=== PATIENT | female | born 1945 | race Caucasian/White ===

== ENCOUNTER 2017-05-06 20:07 | Inpatient (IN) | payer MEDICARE, BC ==
[~2017-05-06] VITALS: Ht 170.2 cm; Wt 101.6 kg
[~2017-05-06 20:07] MED LIST: ATOR20TA PO; LEVO112T5 PO; METO25TA6 PO; NIFE10CA PO; OXYC5CAP18 PO; RAMI5CAP30 PO; SUMA100T PO
[2017-05-06] MEDS ORDERED: MAGNESIUM HYDROXIDE 30 ML UDC PO PRN (23:00)
--- NOTE | 2017-05-06 23:00 | NUR ---
GPS NECKTIES PAINTER NOTES: ADMITTED A 72YO FEMALE FROM [facility] ON 5150 HOLD FOR GRAVE DISABILITY. PER HOLD THE PATIENT HAS HISTORY OF DEPRESSION, ANXIETY. PATIENT HAS BEEN IMPULSIVE, FORGETFUL, LABILE, CALLED 911 COUPLE OF TIMES WITHOUT ANY REASON. PER PATIENT "I HAVE TROUBLE GETTING MY WORDS TOGETHER, I HAVE SEVERE ANXIETY, I KNOW I CALLED 911 MANY TIMES BUT I DON'T KNOW WHY I CALLED" PATIENT WILL BE UNDER THE CARE OF DR. GONZALEZ AND DR. BUSTILLO. PATIENT USHERED TO HER ROOM. CHANGED TO PATIENT'S GOWN. UPON FACE TO FACE ASSESSMENT, PATIENT PRESENTS ALERT AND ORIENTEDX3, NOT IN RESPIRATORY DISTRESS THIS TIME, NO COMPLAINS OF PAIN OR DISCOMFORT. PATIENT APPEARS UNKEMPT, DISHEVELED, CONFUSED, FORGETFUL AND NEEDY DURING THIS ASSESSMENT. ORIENTATION TO UNIT, STAFF, CARE PLAN AND DOCTORS DONE. PATIENT WAS ABLE TO SIGN ADMISSION PAPERS BY HERSELF. SHE REFUSED TO HAVE FULL SKIN AND BODY ASSESSMENT, HOWEVER, SHE CLAIMS TO HAVE NO ANY SKIN PROBLEMS AT THIS TIME. BELONGINGS AND CONTRABAND WERE CHECKED. SOME BELONGINGS KEPT IN THE SAFE. Q15 MIN CHECKS INITIATED. CARE PLAN SPECIFIC FOR PATIENT INITIATED. ENVIRONMENTAL SAFETY CHECK DONE. DR. GONZALEZ AND DR. MALDONADO (ADVANCED PRACTICE RN FOR [facility]) INFORMED OF THE SAID ADMISSION. WILL MONITOR PATIENT FOR MOOD, SAFETY AND BEHAVIOR.
[2017-05-06] MEDS ORDERED: ALBU2.5V13 NEB (23:16)
[2017-05-06] MEDS ORDERED: ALEN70TA3 PO (23:17)
[2017-05-06] MEDS ORDERED: ARIP2TAB3 PO (23:18)
[2017-05-06] MEDS ORDERED: BENZ-13 PO (23:19)
[2017-05-06 23:20] VITALS: BP 151/92
[2017-05-06] MEDS ORDERED: CLON0.1T PO (23:21)
[2017-05-06] MEDS ORDERED: CYAN10009 PO (23:23)
[2017-05-06] MEDS ORDERED: FENO145T PO (23:23)
[2017-05-06] MEDS ORDERED: FLUT1BLS IH (23:24)
[2017-05-06] MEDS ORDERED: GABA-534 PO (23:25)
[2017-05-06] MEDS ORDERED: GUAI10SY3 PO (23:27)
[2017-05-06] MEDS ORDERED: HEPA500013 SQ (23:28)
[2017-05-06] MEDS ORDERED: LEVO137T24 PO (23:30)
--- NOTE | 2017-05-06 23:30 | NUR ---
GPS RN NOTE, PATIENT NEEDS MED RECON. PAGED AND LEFT MESSAGE FOR DR [facility] . DR MALDONADO DISTRIBUTION SALES MANAGER. WAITING FOR A RETURN PHONE CALL. WILL CONTINUE TO MONITOR THIS PATIENT.
[2017-05-06] MEDS ORDERED: LORA10TA68 PO (23:31)
[2017-05-06] MEDS ORDERED: METH500T PO (23:33)
[2017-05-06] MEDS ORDERED: ACETAMINOPHEN 325 MG TABLET ONE (23:34)
[2017-05-06] MEDS ORDERED: METO50TA16 PO (23:35)
[2017-05-06] MEDS ORDERED: MIRT30TA PO (23:36)
[2017-05-06] MEDS ORDERED: MONT10TA22 PO (23:37)
[2017-05-06] MEDS: ACETAMINOPHEN 325 MG TABLET PO PRN (23:38)
[2017-05-06] MEDS ORDERED: OMEG1CAP PO (23:38)
[2017-05-06] MEDS ORDERED: VERA180T25 PO (23:39)
--- NOTE | 2017-05-06 23:42 | NUR ---
GPS RN NOTES: PATIENT COMPLAINED OF MILD GENERALIZED BODY PAIN, REQUESTED FOR TYLENOL MEDICATION. TYLENOL 650 MG PULLED OUT FROM OMNICELL BY DEVELOPER ANALYST-SULAIMAN AND GIVEN TO PATIENT A PRN MED. WILL MONITOR PATIENT'S PAIN STATUS.
[2017-05-06] MEDS ORDERED: ATOR40TA PO (23:44)
--- NOTE | 2017-05-07 00:42 | NUR ---
GPS RN NOTE, PATIENT NEEDS MED RECON. PAGED DR [facility] . INFORMED DR MALDONADO OF MY FINDINGS. DR MALDONADO ORDERED TO ALBUTEROL 2.5MG / 3ML VIA NEB Q4HR PRN AND SAID HE WILL RECONCILE THE REST OF THIS PATIENTS MEDICATION IN THE MORNING. ALL ORDERS NOTED AND CARRIED OUT. WILL CONTINUE TO MONITOR THIS PATIENT.
[2017-05-07] MEDS ORDERED: ACETAMINOPHEN 325 MG TABLET ONE (05:27)
[2017-05-07] MEDS: ACETAMINOPHEN 325 MG TABLET PO PRN (05:31)
--- NOTE | 2017-05-07 09:19 | NUR ---
GPS RN/NOTE PATIENT NEEDS MED RECON. PAGED DR [facility] . WAITING FOR CALL BACK WILL CONTINUE TO MONITOR THIS PATIENT.
[2017-05-07 09:44] VITALS: BP 161/84
[2017-05-07] MEDS: LORAZEPAM 0.5 MG TABLET PO PRN ×2 (13:01→20:44)
--- NOTE | 2017-05-07 13:08 | NUR ---
GPS RN NOTE: PAGED DR GONZALEZ PT EXTREMELY ANXIOUS PER ORDER GIVE PRN ATIVAN 0.5 MG. MEDICATIONS GIVEN WILL CONTINUE MONITORING.
--- NOTE | 2017-05-07 14:38 | NUR ---
GPS RN NOTE: [facility] WAS PAGED FOR DR BOLAÑOS TO RECONCILED HOME MEDS WAITING FOR CALL BACK X 2
[2017-05-07] MEDS ORDERED: GUAIFENESIN/CODEINE 10 ML UDC PO PRN (15:30)
[2017-05-07] MEDS ORDERED: ALBUTEROL FS 2.5 MG/0.5 ML VIAL.NEB NEB PRN (15:30)
[2017-05-07 16:00] VITALS: BP 152/87
[2017-05-07] MEDS: risperiDONE 1 MG TABLET PO SCH (17:39)
--- NOTE | 2017-05-07 19:30 | NUR ---
GPS RN NOTE, RECEIVED PATIENT AWAKE AND IN BED, NO S/S OR COMPLAINTS OF PAIN AT THIS TIME. PATIENT DISPLAYING NO S/S OF APPARENT DISTRESS AT THIS TIME. PATIENT BREATHING IS UNLABORED WITH EQUAL RISE AND FALL OF THE CHEST. PATIENT IS ALERT AND ORIENTED X 2-3 ON ROOM AIR WITH A SPO2 95 %. PATIENT IS MED COMPLIANT, CONFUSED AT TIMES, CALM, COOPERATIVE, AND NEEDS REORIENTATION AT TIMES. PATIENT HAS A ONE TO ONE SITTER FOR FALL RISK. PATIENT DENIES SI AND HI AT THIS TIME. PATIENT ASSISTED WITH TURNING AND REPOSITIONING Q2HR AND PRN FOR COMFORT AND CIRCULATION. PATIENT HAS NO NEEDS AT THIS TIME. PATIENT EDUCATED ON THE USE OF THE CALL DOVER. PATIENT BED SIDE RAILS UP X 2 FOR SAFETY, BED IS LOCKED AND LOW, WILL CONTINUE TO MONITOR THIS PATIENT WITH THE HELP OF STAFF.
[2017-05-07 19:48] VITALS: BP 151/86
--- NOTE | 2017-05-07 20:44 | NUR ---
GPS RN NOTE, PATIENT HAS A COMPLAINT OF FEELING ANXIOUS AND IS REQUESTING ATIVAN AT THIS TIME. PATIENT VITAL SIGNS ARE STABLE. GAVE ATIVAN 0.5MG PO Q6HR PRN ORDERED. WILL REASSESS FOR ANXIETY AND I WILL CONTINUE TO MONITOR THIS PATIENT.
[2017-05-07] MEDS: MIRTAZAPINE 15 MG TABLET PO SCH (21:27)
[2017-05-07] MEDS: ATORVASTATIN 40 MG TABLET PO SCH (21:27)
[2017-05-07] MEDS: METOPROLOL TARTRATE 50 MG TABLET PO SCH (21:28)
[2017-05-07] MEDS: HEPARIN SODIUM, PORCINE 5000 UNITS/1 ML VIAL SQ SCH (21:29)
[2017-05-08] MEDS: ZOLPIDEM TARTRATE 5 MG TABLET PO PRN (00:01)
--- NOTE | 2017-05-08 00:01 | NUR ---
GPS RN NOTE, PATIENT HAS A COMPLAINT OF NOT BEING ABLE TO SLEEP AND IS REQUESTING AMBIEN AT THIS TIME. PATIENT VITAL SIGNS ARE STABLE. GAVE AMBIEN 5MG PO HS ORDERED. WILL REASSESS FOR INSOMNIA AND I WILL CONTINUE TO MONITOR THIS PATIENT.
[2017-05-08 08:00] VITALS: BP 167/90
[2017-05-08 08:50] LABS: BASOPHILS % (AUTO) 0.2 % (0.0-2.0); EOSINOPHILS # (AUTO) 0.2 /CMM (0.0-0.7); EOSINOPHILS % (AUTO) 1.7 % (0.0-6.0); HEMATOCRIT 35 % (33-45); LYMPHOCYTES # (AUTO) 1.5 /CMM (0.8-4.8); LYMPHOCYTES % (AUTO) 15.1 % (20.0-44.0); MEAN CORPUSCULAR HEMOGLOBIN 29 PG (26.0-33.0); MEAN CORPUSCULAR HGB CONC 34 g/dl (31.0-36.0); MEAN CORPUSCULAR VOLUME 86 fL (82-100); MONOCYTES # (AUTO) 0.7 /CMM (0.1-1.30); MONOCYTES % (AUTO) 6.4 % (2.0-12.0); NEUTROPHILS # (AUTO) 7.8 /CMM (1.8-8.9); NEUTROPHILS % (AUTO) 76.6 % (43.0-81.0); PLATELET COUNT (AUTO) 339 /CMM (150-450); RDW COEFFICIENT OF VARIATION 15.8 (11.5-15.0); RED BLOOD CELL COUNT(AUTO) 4.11 MIL/uL (4.0-5.2); WHITE BLOOD COUNT (AUTO) 10.2 K/uL (4.3-11.0)
[2017-05-08 08:59] LABS: ALANINE AMINOTRANSFERASE 37 U/L (12-78); ALBUMIN 3.7 g/dL (3.4-5.0); ALKALINE PHOSPHATASE 45 U/L (46-116); BILIRUBIN,TOTAL 0.4 mg/dL (0.2-1.0); CALCIUM, SERUM 8.9 mg/dL (8.5-10.1); CARBON DIOXIDE 20 mmol/L (21-32); CHLORIDE 106 mmol/L (98-107); CREATININE 1.3 mg/dL (0.6-1.3); GLUCOSE 114 mg/dL (74-106); POTASSIUM 3.7 mmol/L (3.5-5.1); SODIUM SERUM 139 mmol/L (136-145); TOTAL PROTEIN, SERUM 7.1 g/dL (6.4-8.2); UREA NITROGEN, BLOOD 27 mg/dL (7-18)
[2017-05-08] MEDS: FLUTICASONE/VILANTEROL 1 EACH BLST.W.DEV IH SCH (09:00)
[2017-05-08] MEDS: METHOCARBAMOL (500MG) 500 MG TABLET PO PRN (09:00)
[2017-05-08] MEDS ORDERED: Medication Not On Formulary EA (Omega-3 Fatty Acids/Fish Oil (Fish Oil 1,000 Mg Capsule) PO SCH (09:00)
[2017-05-08] MEDS: CYANOCOBALAMIN 500 MCG TABLET PO SCH (09:02)
[2017-05-08] MEDS: LEVOTHYROXINE SODIUM 137 MCG TABLET PO SCH (09:02)
[2017-05-08] MEDS: GABAPENTIN 300 MG CAPSULE PO SCH (09:02)
[2017-05-08] MEDS: FENOFIBRATE NANOCRYS (145 MG) 145 MG TABLET PO SCH (09:03)
[2017-05-08] MEDS: MONTELUKAST SODIUM (10MG) 10 MG TABLET PO SCH (09:03)
[2017-05-08] MEDS: METOPROLOL TARTRATE 50 MG TABLET PO SCH ×2 (09:05→21:23)
[2017-05-08] MEDS: VERAPAMIL SR 180 MG TABLET.SA PO SCH (09:06)
[2017-05-08] MEDS: HEPARIN SODIUM, PORCINE 5000 UNITS/1 ML VIAL SQ SCH ×2 (09:11→21:25)
[2017-05-08 09:22] LABS: CHOLESTEROL 277 mg/dL (<200); HDL CHOLESTEROL 34 mg/dL (40-60); LDL 102 mg/dL (0-99)
[2017-05-08 09:36] LABS: TRIGLYCERIDES 1160 mg/dL (30-150)
[2017-05-08 10:30] LABS: ASPARTATE AMINOTRANSFERASE 27 U/L (15-37)
[2017-05-08] MEDS: Z GUARD REMEDY 2 OZ OINT TP SCH (12:34)
[2017-05-08 16:27] VITALS: BP 165/91
[2017-05-08] MEDS: risperiDONE 1 MG TABLET PO SCH (17:08)
[2017-05-08] MEDS: CLONIDINE HCL 0.1 MG TABLET PO PRN (17:38)
[2017-05-08 18:39] VITALS: BP 138/80
[2017-05-08 20:23] VITALS: BP 117/66
[2017-05-08] MEDS: ATORVASTATIN 40 MG TABLET PO SCH (21:23)
[2017-05-08] MEDS: MIRTAZAPINE 15 MG TABLET PO SCH (21:23)
[2017-05-09] MEDS: ZOLPIDEM TARTRATE 5 MG TABLET PO PRN ×2 (01:50→21:59)
[2017-05-09 08:00] VITALS: BP 167/76
[2017-05-09] MEDS: FENOFIBRATE NANOCRYS (145 MG) 145 MG TABLET PO SCH (09:00)
[2017-05-09] MEDS: MONTELUKAST SODIUM (10MG) 10 MG TABLET PO SCH (09:00)
[2017-05-09] MEDS: LEVOTHYROXINE SODIUM 137 MCG TABLET PO SCH (09:00)
[2017-05-09] MEDS: GABAPENTIN 300 MG CAPSULE PO SCH (09:00)
[2017-05-09] MEDS: LORATADINE 10 MG TABLET PO SCH (09:01)
[2017-05-09] MEDS: METOPROLOL TARTRATE 50 MG TABLET PO SCH ×2 (09:01→21:23)
[2017-05-09] MEDS: CYANOCOBALAMIN 500 MCG TABLET PO SCH (09:01)
[2017-05-09] MEDS: FLUTICASONE/VILANTEROL 1 EACH BLST.W.DEV IH SCH (09:02)
[2017-05-09] MEDS: HEPARIN SODIUM, PORCINE 5000 UNITS/1 ML VIAL SQ SCH ×2 (09:10→21:23)
[2017-05-09] MEDS: Z GUARD REMEDY 2 OZ OINT TP SCH ×3 (09:14→21:25)
[2017-05-09] MEDS: VERAPAMIL SR 180 MG TABLET.SA PO SCH (09:59)
[2017-05-09 10:57] LABS: CALCIUM, SERUM 8.4 mg/dL (8.5-10.1); CARBON DIOXIDE 18 mmol/L (21-32); CHLORIDE 108 mmol/L (98-107); CREATININE 1.2 mg/dL (0.6-1.3); GLUCOSE 100 mg/dL (74-106); MAGNESIUM 1.9 mg/dL (1.8-2.4); PHOSPHORUS 2.4 mg/dL (2.5-4.9); POTASSIUM 3.7 mmol/L (3.5-5.1); SODIUM SERUM 140 mmol/L (136-145); UREA NITROGEN, BLOOD 23 mg/dL (7-18)
--- NOTE | 2017-05-09 12:38 | NUR ---
Initial Discharge Note Patient [facility] at [facility], [address] [place] [address]. MAGO called and spoke with Theresa in administration at the assisted living facility, who stated that patient can return but that a nurse from assisted living has to come and assess patient first, as protocol. MAGO stated that she will consult with MD and will schedule assessment when appropriate. Addendum: 05/11/17 at 1033 by ROSA MERCEDES Please note that phone number for facility is [phone]
[2017-05-09 16:00] VITALS: BP 119/75
[2017-05-09] MEDS: risperiDONE 1 MG TABLET PO SCH (17:10)
[2017-05-09] MEDS ORDERED: K PHOS NEUTRAL 250 MG TABLET PO ONE (18:00)
[2017-05-09 20:16] VITALS: BP 142/72
--- NOTE | 2017-05-09 20:58 | NUR ---
GPS RN NOTES RECEIVED TELL PHONE ORDERS FROM DR. XI Palmer/Natasha ATIVAN 0.5 MG PRN , NEW ORDERS RECEVIED AND CARRIED OUT.
[2017-05-09] MEDS: ATORVASTATIN 40 MG TABLET PO SCH (21:23)
[2017-05-09] MEDS: MIRTAZAPINE 15 MG TABLET PO SCH (21:23)
[2017-05-10] MEDS ORDERED: ALENDRONATE 70 MG TABLET PO SCH (07:30)
[2017-05-10 08:00] VITALS: BP 139/72
[2017-05-10] MEDS: VERAPAMIL SR 180 MG TABLET.SA PO SCH (08:13)
[2017-05-10] MEDS: LEVOTHYROXINE SODIUM 137 MCG TABLET PO SCH (08:13)
[2017-05-10] MEDS: METOPROLOL TARTRATE 50 MG TABLET PO SCH ×2 (08:14→21:36)
[2017-05-10] MEDS: FLUTICASONE/VILANTEROL 1 EACH BLST.W.DEV IH SCH (08:14)
[2017-05-10] MEDS: CYANOCOBALAMIN 500 MCG TABLET PO SCH (08:14)
[2017-05-10] MEDS: GABAPENTIN 300 MG CAPSULE PO SCH (08:14)
[2017-05-10] MEDS: FENOFIBRATE NANOCRYS (145 MG) 145 MG TABLET PO SCH (08:14)
[2017-05-10] MEDS: Z GUARD REMEDY 2 OZ OINT TP SCH ×3 (08:16→21:41)
[2017-05-10] MEDS: HEPARIN SODIUM, PORCINE 5000 UNITS/1 ML VIAL SQ SCH ×2 (08:16→21:40)
[2017-05-10 09:37] LABS: CALCIUM, SERUM 8.8 mg/dL (8.5-10.1); CARBON DIOXIDE 16 mmol/L (21-32); CHLORIDE 106 mmol/L (98-107); CREATININE 1.1 mg/dL (0.6-1.3); GLUCOSE 102 mg/dL (74-106); PHOSPHORUS 2.5 mg/dL (2.5-4.9); POTASSIUM 3.7 mmol/L (3.5-5.1); SODIUM SERUM 137 mmol/L (136-145); UREA NITROGEN, BLOOD 22 mg/dL (7-18)
[2017-05-10] MEDS: MONTELUKAST SODIUM (10MG) 10 MG TABLET PO SCH (10:40)
[2017-05-10] MEDS: ACETAMINOPHEN 325 MG TABLET PO PRN ×2 (11:22→18:26)
--- NOTE | 2017-05-10 11:22 | NUR ---
RN Note: Patient stated she has 5/10 pain. acetaminophen 650mg given.
[2017-05-10 16:03] VITALS: BP 129/79
[2017-05-10] MEDS: risperiDONE 1 MG TABLET PO SCH (17:08)
--- NOTE | 2017-05-10 18:30 | NUR ---
GPS/RN-NOTES PATIENT C/O HEADACHE AND REQUESTING FOR TYLENOL. TYLENOL 650MG P.O GIVEN PRN ORDER. WILL CONT. MONITORING FOR SAFETY.
[2017-05-10 20:00] VITALS: BP 126/64
[2017-05-10] MEDS: MIRTAZAPINE 15 MG TABLET PO SCH (21:35)
[2017-05-10] MEDS: ATORVASTATIN 40 MG TABLET PO SCH (21:35)
--- NOTE | 2017-05-11 05:33 | NUR ---
GPS/RN-NOTES PATIENT SLEEPING WITH BREATHING EVEN AND NONLABORED,EASILY AROUSES. WILL CONT. MONITORING Q15 MINS. FOR SAFETY AND BEHAVIOR. ENDORSE TO THE CHARGE NURSE FOR MONITORING AND CONTINUITY OF CARE
[2017-05-11 08:00] VITALS: BP 161/79
[2017-05-11] MEDS: GABAPENTIN 300 MG CAPSULE PO SCH (08:57)
[2017-05-11] MEDS: LEVOTHYROXINE SODIUM 137 MCG TABLET PO SCH (08:57)
[2017-05-11] MEDS: CYANOCOBALAMIN 500 MCG TABLET PO SCH (08:57)
[2017-05-11] MEDS: METOPROLOL TARTRATE 50 MG TABLET PO SCH ×2 (08:57→21:57)
[2017-05-11] MEDS: FENOFIBRATE NANOCRYS (145 MG) 145 MG TABLET PO SCH (08:57)
[2017-05-11] MEDS: Z GUARD REMEDY 2 OZ OINT TP SCH ×3 (08:58→22:00)
[2017-05-11] MEDS: MONTELUKAST SODIUM (10MG) 10 MG TABLET PO SCH (08:58)
[2017-05-11] MEDS: VERAPAMIL SR 180 MG TABLET.SA PO SCH (08:59)
[2017-05-11] MEDS: FLUTICASONE/VILANTEROL 1 EACH BLST.W.DEV IH SCH (09:00)
[2017-05-11] MEDS: LORATADINE 10 MG TABLET PO SCH (09:01)
[2017-05-11] MEDS: HEPARIN SODIUM, PORCINE 5000 UNITS/1 ML VIAL SQ SCH ×2 (09:10→21:59)
--- NOTE | 2017-05-11 10:10 | NUR ---
WOUND CARE CONSULT: PT PRESENTS WITH RASH TO INNER BUTTOCKS, PERINEUM AND INNER THIGHS, PRESENT ON ADMISSION. RECOMMENDATIONS MADE FOR SKIN PROTECTION AND CARE. DISCUSSED WITH NURSING STAFF. PT IS AMBULATORY AND STATES IS CONTINENT. WILL SEE PRN. BRUNO IN AGREEMENT WITH PLAN OF CARE. CURRENT RONEN SCORE IS 18. Addendum: 05/11/17 at 1011 by YOCASTA NAVARRO WNDNU Amended: Links added.
[2017-05-11] MEDS ORDERED: MINERAL OIL/PETROLATUM,WHITE 120 GM JAR TP PRN (10:30)
--- NOTE | 2017-05-11 10:35 | NUR ---
Discharge Planning: MAGO left a message with Donnell the rn resource nurse for [facility], [address] [place] [address], for Theresa in administration. MAGO requested an assessment to be conducted and provided her direct contact information. MAGO asked the Theresa call back as soon as she is able to do so.
[2017-05-11] MEDS: CLOTRIMAZOLE/BETAMETASONE DIPROPIONATE 15 GM TUBE TP SCH ×2 (13:17→17:03)
[2017-05-11 16:00] VITALS: BP 131/73
[2017-05-11] MEDS: risperiDONE 1 MG TABLET PO SCH (17:03)
[2017-05-11 21:37] VITALS: BP 146/70
[2017-05-11] MEDS: ZOLPIDEM TARTRATE 5 MG TABLET PO PRN (21:57)
[2017-05-11] MEDS: MIRTAZAPINE 15 MG TABLET PO SCH (21:57)
[2017-05-11] MEDS: ATORVASTATIN 40 MG TABLET PO SCH (21:57)
[2017-05-12 08:00] VITALS: BP 149/94
[2017-05-12] MEDS: FENOFIBRATE NANOCRYS (145 MG) 145 MG TABLET PO SCH (08:51)
[2017-05-12] MEDS: GABAPENTIN 300 MG CAPSULE PO SCH (08:51)
[2017-05-12] MEDS: MONTELUKAST SODIUM (10MG) 10 MG TABLET PO SCH (08:52)
[2017-05-12] MEDS: METOPROLOL TARTRATE 50 MG TABLET PO SCH ×2 (08:52→20:52)
[2017-05-12] MEDS: CYANOCOBALAMIN 500 MCG TABLET PO SCH (08:52)
[2017-05-12] MEDS: FLUTICASONE/VILANTEROL 1 EACH BLST.W.DEV IH SCH (08:53)
[2017-05-12] MEDS: HEPARIN SODIUM, PORCINE 5000 UNITS/1 ML VIAL SQ SCH ×2 (08:53→21:02)
[2017-05-12] MEDS: LEVOTHYROXINE SODIUM 137 MCG TABLET PO SCH (08:53)
[2017-05-12] MEDS: CLOTRIMAZOLE/BETAMETASONE DIPROPIONATE 15 GM TUBE TP SCH ×2 (08:54→17:03)
[2017-05-12] MEDS: Z GUARD REMEDY 2 OZ OINT TP SCH ×3 (08:54→21:00)
[2017-05-12] MEDS: VERAPAMIL SR 180 MG TABLET.SA PO SCH (08:55)
[2017-05-12] MEDS: MAG HYDROX/AL HYDROX/SIMETH 30 ML UDC PO PRN ×2 (14:44→21:59)
[2017-05-12 16:00] VITALS: BP 130/80
[2017-05-12] MEDS: risperiDONE 1 MG TABLET PO SCH (17:03)
[2017-05-12 20:00] VITALS: BP 149/87
[2017-05-12] MEDS: ATORVASTATIN 40 MG TABLET PO SCH (21:15)
[2017-05-12] MEDS: MIRTAZAPINE 15 MG TABLET PO SCH (21:15)
[2017-05-12] MEDS: ZOLPIDEM TARTRATE 5 MG TABLET PO PRN (21:58)
[2017-05-13] MEDS: LEVOTHYROXINE SODIUM 137 MCG TABLET PO SCH ×2 (07:28→09:34)
[2017-05-13 08:00] VITALS: BP 160/89
[2017-05-13] MEDS: GABAPENTIN 300 MG CAPSULE PO SCH (09:34)
[2017-05-13] MEDS: MONTELUKAST SODIUM (10MG) 10 MG TABLET PO SCH (09:34)
[2017-05-13] MEDS: LORATADINE 10 MG TABLET PO SCH (09:34)
[2017-05-13] MEDS: CYANOCOBALAMIN 500 MCG TABLET PO SCH (09:34)
[2017-05-13] MEDS: FENOFIBRATE NANOCRYS (145 MG) 145 MG TABLET PO SCH (09:34)
[2017-05-13] MEDS: METOPROLOL TARTRATE 50 MG TABLET PO SCH ×2 (09:35→21:03)
[2017-05-13] MEDS: Z GUARD REMEDY 2 OZ OINT TP SCH ×3 (09:36→21:10)
[2017-05-13] MEDS: CLOTRIMAZOLE/BETAMETASONE DIPROPIONATE 15 GM TUBE TP SCH ×2 (09:36→17:45)
[2017-05-13] MEDS: FLUTICASONE/VILANTEROL 1 EACH BLST.W.DEV IH SCH (09:36)
[2017-05-13] MEDS: VERAPAMIL SR 180 MG TABLET.SA PO SCH (09:38)
[2017-05-13] MEDS: HEPARIN SODIUM, PORCINE 5000 UNITS/1 ML VIAL SQ SCH ×2 (09:39→21:09)
[2017-05-13] MEDS: CLONIDINE HCL 0.1 MG TABLET PO PRN (14:35)
[2017-05-13 16:00] VITALS: BP 173/98
[2017-05-13] MEDS: risperiDONE 1 MG TABLET PO SCH (17:47)
[2017-05-13 20:00] VITALS: BP 151/74
[2017-05-13] MEDS: ATORVASTATIN 40 MG TABLET PO SCH (21:03)
[2017-05-13] MEDS: MIRTAZAPINE 15 MG TABLET PO SCH (21:04)
[2017-05-13] MEDS: MAG HYDROX/AL HYDROX/SIMETH 30 ML UDC PO PRN (21:04)
[2017-05-14] MEDS ORDERED: LEVOTHYROXINE SODIUM 137 MCG TABLET PO SCH (07:30)
[2017-05-14 08:00] VITALS: BP 130/80
[2017-05-14] MEDS ORDERED: LEVOTHYROXINE SODIUM 75 MCG TABLET PO SCH (08:42)
[2017-05-14] MEDS: MONTELUKAST SODIUM (10MG) 10 MG TABLET PO SCH (08:48)
[2017-05-14] MEDS: FENOFIBRATE NANOCRYS (145 MG) 145 MG TABLET PO SCH (08:48)
[2017-05-14] MEDS: GABAPENTIN 300 MG CAPSULE PO SCH (08:48)
[2017-05-14] MEDS: CYANOCOBALAMIN 500 MCG TABLET PO SCH (08:48)
[2017-05-14] MEDS: LEVOTHYROXINE SODIUM 75 MCG TABLET PO SCH (08:48)
[2017-05-14] MEDS: Z GUARD REMEDY 2 OZ OINT TP SCH ×3 (08:51→21:34)
[2017-05-14] MEDS: VERAPAMIL SR 180 MG TABLET.SA PO SCH (08:51)
[2017-05-14] MEDS: FLUTICASONE/VILANTEROL 1 EACH BLST.W.DEV IH SCH (08:51)
[2017-05-14] MEDS: CLOTRIMAZOLE/BETAMETASONE DIPROPIONATE 15 GM TUBE TP SCH ×2 (08:51→17:00)
[2017-05-14] MEDS: HEPARIN SODIUM, PORCINE 5000 UNITS/1 ML VIAL SQ SCH (08:53)
[2017-05-14] MEDS: METOPROLOL TARTRATE 50 MG TABLET PO SCH ×2 (09:11→21:32)
--- NOTE | 2017-05-14 09:45 | NUR ---
Discharge Planning: MAGO spoke with Suyapa from [facility], [address] [place] [address], , who stated that they will assess patient today at 1:30 and that a courtesy van driver will be ready to provide transportation today, upon discharge. MAGO informed nurses and patient. Patient's psychiatrist, Dr. Felix left a message for SW that patient can discharge on Sunday.
[2017-05-14] MEDS: ALBUTEROL FS 2.5 MG/3 ML VIAL.NEB NEB PRN (13:07)
[2017-05-14] MEDS: risperiDONE 1 MG TABLET PO SCH (18:19)
--- NOTE | 2017-05-14 18:29 | NUR ---
CHANGE OF SHIFT REPORT PT RESTING COMFORTABLY IN BED. NO S/S OR C/O PAIN OR DISTRESS NOTED. SIDE RAILS UP X2, CALL LIGHT LEFT WITHIN REACH. PT KEPT CLEAN, DRY, AND COMFORTABLE. NO SIGNIFICANT CHANGES SINCE PREVIOUS SHIFT. WILL GIVE REPORT TO YESENIA WILKINSON.
--- NOTE | 2017-05-14 19:30 | NUR ---
RN OPENING NOTES RECEIVED REPORT FROM DAYSHIFT RNJOYCE. FOUND Pt AWAKE, RESTING IN BED, WATCHING TV. NO S/S OF ACUTE DISTRESS OR SOB NOTED. Pt IS A/OX3, VERBAL, ABLE TO MAKE NEEDS KNOWN. NO C/O PAIN AT THIS TIME. NO IV ACCESS ON Pt. Pt IS A GPS OVERFLOW, ON A 5150 HOLD. SAFETY MEASURES IN PLACE. BED LOW, LOCKED, HOB ELEVATED, SIDE RAILS UP, CALL LIGHT AND BEDSIDE TABLE WITHIN REACH. WILL CONTINUE TO MONITOR Pt THROUGHOUT THE NIGHT FOR SAFETY.
[2017-05-14 20:00] VITALS: BP 135/79
[2017-05-14] MEDS: ATORVASTATIN 40 MG TABLET PO SCH (21:31)
[2017-05-14] MEDS: MIRTAZAPINE 15 MG TABLET PO SCH (21:31)
[2017-05-14] MEDS: ZOLPIDEM TARTRATE 5 MG TABLET PO PRN (21:35)
[2017-05-15] MEDS: ACETAMINOPHEN 325 MG TABLET PO PRN ×2 (06:29→10:18)
--- NOTE | 2017-05-15 06:32 | NUR ---
RN CLOSING NOTES NO SIGNIFICANT CHANGES IN Pt's CONDITION. Pt REMAINS STABLE AT THIS TIME. NO S/S OF ACUTE DISTRESS OR SOB NOTED DURING THE NIGHT. ALL NEEDS MET AND ATTENDED TO. Pt C/O STOMACH ACHE & PAINS, Pt SAID THAT SHE DID NOT HAVE A BM FOR ABOUT 2 DAYS. ADMINISTERED MOM AND TYLENOL. SAFETY MEASURES IN PLACE. WILL ENDORSE TO DAYSCHITO RN FOR Pt's CARLOS. Addendum: 05/15/17 at 0655 by ANNA FLORES RN ALSO GAVE HOT PACKS TO Pt TO PUT ON STOMACH
[2017-05-15 08:00] VITALS: BP 126/65
--- NOTE | 2017-05-15 08:00 | NUR ---
RN OPENING NOTES RECEIVED PT. IN BED A&OX2-3. PT. DENIES, SUICIDAL IDEATION, AND SELF HARM. BREATHING UNLABORED, AND EVENLY ON ROOM AIR. NO S/S OF ACUTE DISTRESS. PT. IS FROM. BED IS IN LOWEST, AND LOCKED POSITION, 2 SIDE RAILS UP, AND INSTRUCTED PT. TO USE CALL LIGHT FOR ASSISTANCE. WILL CONTINUE TO ASSESS AND MONITOR.
[2017-05-15] MEDS: Z GUARD REMEDY 2 OZ OINT TP SCH ×2 (09:00→21:00)
[2017-05-15] MEDS: FENOFIBRATE NANOCRYS (145 MG) 145 MG TABLET PO SCH (10:18)
[2017-05-15] MEDS: MONTELUKAST SODIUM (10MG) 10 MG TABLET PO SCH (10:18)
[2017-05-15] MEDS: GABAPENTIN 300 MG CAPSULE PO SCH (10:18)
[2017-05-15] MEDS: LORATADINE 10 MG TABLET PO SCH (10:19)
[2017-05-15] MEDS: CYANOCOBALAMIN 500 MCG TABLET PO SCH (10:19)
[2017-05-15] MEDS: LEVOTHYROXINE SODIUM 75 MCG TABLET PO SCH (10:19)
[2017-05-15] MEDS: METOPROLOL TARTRATE 50 MG TABLET PO SCH ×2 (10:20→21:07)
--- NOTE | 2017-05-15 11:07 | NUR ---
SW spoke with patient's RN and confirmed that a chest x-ray was conducted. RN stated that the results have not returned yet and that they are waiting for medical clearance. MAGO provided patient with SW's extension and asked for RN to contact her once updates were available.
[2017-05-15] MEDS: FLUTICASONE/VILANTEROL 1 EACH BLST.W.DEV IH SCH (12:25)
[2017-05-15] MEDS: CLOTRIMAZOLE/BETAMETASONE DIPROPIONATE 15 GM TUBE TP SCH ×2 (12:25→17:48)
[2017-05-15] MEDS: VERAPAMIL SR 180 MG TABLET.SA PO SCH (12:29)
[2017-05-15] MEDS ORDERED: AZITHROMYCIN 250 MG TABLET PO ONE (14:00)
--- NOTE | 2017-05-15 15:42 | NUR ---
Patient's chest x-ray came back clear and patient was medically cleared. Patient's psychiatrist gave the order to discharge.
--- NOTE | 2017-05-15 15:43 | NUR ---
Discharge Note: Patient will be discharged to [facility], [address] [place] [address], Patient will be picked up by Etta Valderrama, her patient advocate [phone] in her private vehicle. Etta Colin [phone], patients conservator [PLEASE NOTE THAT THERE IS NO PAPERWORK IN PATIENTS CHART ABOUT CONSERVATORSHIP]. Both Etta Valderrama and Etta Colin where in agreement with discharge plan. Upon discharge, patient appears calm and cooperative. Patient denies suicidal and homicidal ideation. Patient will be seen by her psychiatrist, Dr. Felix [address] [facility] [address] [place] [phone] on June 18 2017 at 2pm. Patient will also follow up with her ager tender, Dr. Serrato [address] [facility] [address], [place] [address] [phone] on May 21 at 2pm. Addendum: 05/16/17 at 0956 by ROSA MERCEDES PLEASE NOTE THAT PATIENT DID NOT DISCHARGE YESTERDAY. DISCHARGE WAS RESCHEDULED FOR TODAY, 05/16. MAGO TO CONFIRM WITH DOCTOR.
[2017-05-15 16:00] VITALS: BP 155/77
--- NOTE | 2017-05-15 16:50 | NUR ---
RN-CO: DR LAYNE GAVE AN ORDER TO DISCHARGE PATIENT TODAY. PATIENT DENIED SUICIDAL AND HOMICIDAL IDEATION. DENIED COMMAND HALLUCINATION.
[2017-05-15] MEDS: risperiDONE 1 MG TABLET PO SCH (17:48)
--- NOTE | 2017-05-15 18:00 | NUR ---
RN NOTES PT. WAS SEEN AND EXAMINED BY DR. LAYNE. PER , PT.'S DISCHARGE WAS PUT ON HOLD DUE TO PSYCHIATRIC REASON.
--- NOTE | 2017-05-15 19:30 | NUR ---
RN CLOSING NOTES PT. IN BED A&OX2-3. PT. DENIES, SUICIDAL IDEATION, AND SELF HARM. BREATHING UNLABORED, AND EVENLY ON ROOM AIR. NO S/S OF ACUTE DISTRESS. BED IS IN LOWEST, AND LOCKED POSITION, 2 SIDE RAILS UP, AND INSTRUCTED PT. TO USE CALL LIGHT FOR ASSISTANCE. WILL ENDORSE REPORT TO NURSE.
--- NOTE | 2017-05-15 19:30 | NUR ---
RN OPENING NOTES RECEIVED REPORT FROM DAYSHIFT RNYODIT. FOUND Pt AWAKE, RESTING IN BED, WATCHING TV. NO S/S OF ACUTE DISTRESS OR SOB NOTED. Pt IS A/OX3, VERBAL, ABLE TO MAKE NEEDS KNOWN. Pt IS GPS OVERFLOW. NO IV ACCESS. Pt IS C/O OF STOMACH PAINS AND COUGH. HAVING SOME ANXIETY. SAFETY MEASURES IN PLACE. BED LOW, LOCKED, HOB ELEVATED, SIDE RAILS UP, CALL LIGHT AND BEDSIDE TABLE WITHIN REACH. WILL CONTINUE TO MONITOR Pt THROUGHOUT THE NIGHT FOR SAFETY.
[2017-05-15 20:00] VITALS: BP 146/73
[2017-05-15] MEDS: BENZONATATE 100 MG CAPSULE PO PRN (20:59)
[2017-05-15] MEDS: MAG HYDROX/AL HYDROX/SIMETH 30 ML UDC PO PRN (21:00)
[2017-05-15] MEDS: ATORVASTATIN 40 MG TABLET PO SCH (21:00)
[2017-05-15] MEDS: MIRTAZAPINE 15 MG TABLET PO SCH (21:12)
[2017-05-15] MEDS: ZOLPIDEM TARTRATE 5 MG TABLET PO PRN (21:57)
--- NOTE | 2017-05-16 06:30 | NUR ---
RN CLOSING NOTES Pt HAS BEEN SOMEWHAT MORE CONFUSED TODAY. KEEPS REPEATING HER SENTENCES, AND LOSES HER TRAIN OF THOUGHT, AND IS BEING VERY FORGETFUL. Pt WAITING TO BE DISCHARGED TODAY. WILL BE SEEN BY DR. LAYNE BEFORE DC. NO OTHER SIGNIFICANT CHANGES IN Pt's CONDITION. Pt REMAINS STABLE AT THIS TIME. NO S/S OF ACUTE DISTRESS OR SOB NOTED DURING THE NIGHT. ALL NEEDS MET AND ATTENDED TO. SAFETY MEASURES IN PLACE. WILL ENDORSE TO DAYSHIFT RN FOR Pt's CARLOS.
[2017-05-16 08:00] VITALS: BP 158/77
--- NOTE | 2017-05-16 08:00 | NUR ---
RN NOTES PATIENT ALERT AND ORIENTED, NO DISTRESS NOTED. PATIENT APPEARS ANXIOUS. NO SOB NOTED. COMPLAINING OF COUGH. NEEDS ATTENDED AND MET, CALL LIGHT WITHIN REACH, SAFETY MEASURES IN PLACED, CALL LIGHT WITHIN REACH. WILL CONTINUE TO MONITOR.
[2017-05-16] MEDS: MONTELUKAST SODIUM (10MG) 10 MG TABLET PO SCH (08:38)
[2017-05-16] MEDS: CLOTRIMAZOLE/BETAMETASONE DIPROPIONATE 15 GM TUBE TP SCH (08:38)
[2017-05-16] MEDS: CYANOCOBALAMIN 500 MCG TABLET PO SCH (08:38)
[2017-05-16] MEDS: Z GUARD REMEDY 2 OZ OINT TP SCH (08:38)
[2017-05-16] MEDS: GABAPENTIN 300 MG CAPSULE PO SCH (08:38)
[2017-05-16] MEDS: LEVOTHYROXINE SODIUM 75 MCG TABLET PO SCH (08:38)
[2017-05-16] MEDS: FENOFIBRATE NANOCRYS (145 MG) 145 MG TABLET PO SCH (08:38)
[2017-05-16] MEDS: VERAPAMIL SR 180 MG TABLET.SA PO SCH (08:39)
[2017-05-16] MEDS: FLUTICASONE/VILANTEROL 1 EACH BLST.W.DEV IH SCH (08:39)
[2017-05-16] MEDS: METOPROLOL TARTRATE 50 MG TABLET PO SCH (08:39)
[2017-05-16] MEDS: BENZONATATE 100 MG CAPSULE PO PRN ×2 (08:45→15:25)
--- NOTE | 2017-05-16 10:49 | NUR ---
Updated Discharge Note: MAGO spoke with patient's psychiatrist, Dr. Felix and confirmed discharged for today. Patient will be discharged to assisted living facility [facility], [address] [place] [address], Patient will be picked up by Etta Valderrama, her patient advocate [phone] in her private vehicle at 2pm. Etta Colin [phone], patients conservator [PLEASE NOTE THAT THERE IS NO PAPERWORK IN PATIENTS CHART ABOUT CONSERVATORSHIP]. Both Etta Valderrama and Etta Colin where in agreement with discharge plan. Upon discharge, patient appears calm and cooperative. Patient denies suicidal and homicidal ideation. Patient will be seen by her psychiatrist, Dr. Felix [address] [facility] [address] [place] [phone] on June 18 2017 at 2pm. Patient will also follow up with her mainspring fabrication supervisor, Dr. Serrato [address] [facility] [address], [place] [address] [phone] on May 21 at 2pm MAGO informed nurse to obtain a home health order from doctor. MAGO to fax home health referral to [facility], / fax#[phone], as requested by Etta Valderrama, patient's care nurse rn/advocate. Addendum: 05/16/17 at 1437 by ROSA MERCEDES PLEASE NOTE: Etta Valderrama, is the patient's gearcase assembler from [employer] Addendum: 05/18/17 at 1043 by ROSA MERCEDES Please note that patient was discharged to medical floor instead of home. Etta Valderrama is aware.
[2017-05-16 11:38] VITALS: BP 115/69
[2017-05-16] MEDS: ALBUTEROL FS 2.5 MG/3 ML VIAL.NEB NEB PRN ×2 (11:57→14:09)
[2017-05-16] MEDS ORDERED: AZITHROMYCIN 250 MG TABLET PO SCH (14:00)
[2017-05-16] MEDS: METHOCARBAMOL (500MG) 500 MG TABLET PO PRN (14:27)
--- NOTE | 2017-05-16 14:38 | NUR ---
MAGO faxed the home health order to [facility], / fax#[phone]
[2017-05-16] MEDS: ACETAMINOPHEN 325 MG TABLET PO PRN (15:09)
[2017-05-16 15:25] VITALS: BP 163/71
[2017-05-16] MEDS: CLONIDINE HCL 0.1 MG TABLET PO PRN (15:25)
--- NOTE | 2017-05-16 15:45 | NUR ---
RN NOTES PATIENT VS BP 159/90 HR 110 TEMP 100.2 SPO2 91-92% IN ROOM AIR. PATIENT'S COMPLAINING OF NOT FEELING WELL. JANN INDEPENDENT TRADER AT FACILITY AT BEDSIDE TO MORNING SHOW [place] PRODUCER THE PATIENT, DR. WASHINGTON MADE AWARE OF CHANGES. PER MD, PATIENT CAN BE DISCHARGED IF SHE FEELS FINE. PATIENT VERBALIZED SHE WANTS TO STAY BECAUSE SHE DOESN'T FEEL WELL. RECEIVED ORDER FOR DISCHARGE FROM GPS, AND TO ADMIT PATIENT TO MEDICAL SURGICAL FLOOR.
--- NOTE | 2017-05-16 17:01 | NUR ---
RN NOTES PATIENT WILL BE CONVERTED TO MED SURG. DISCHARGE INSTRUCTIONS PROVIDED, VERBALIZED UNDERSTANDING. PATIENT SIGNED DISCHARGE PAPERWORKS. SKIN ASSESSMENT COMPLETED, PATIENT HAS REDNESS ON BUTTOCKS, REFUSED SKIN PHOTOS AT THIS TIME.
== END 2017-05-16 17:00 | disposition short-term general hospital (02) | DRG 885 ==
LOC: GPS 22:26 → GPSOV2 05-14 15:06
PROVIDERS: ADMIT Psychiatry & Neurology Psychiatry; ATTEND Internal Medicine
DX: F33.9 Major depressive disorder, recurrent, unspecified (principal); N18.9 Chronic kidney disease, unspecified; N17.9 Acute kidney failure, unspecified; E03.9 Hypothyroidism, unspecified; I12.9 Hypertensive chronic kidney disease with stage 1 through stage 4 chronic kidney disease, or unspecified chronic kidney disease; E78.5 Hyperlipidemia, unspecified; F41.9 Anxiety disorder, unspecified; K21.9 Gastro-esophageal reflux disease without esophagitis; M79.7 Fibromyalgia; Z87.891 Personal history of nicotine dependence; M81.0 Age-related osteoporosis without current pathological fracture; Z73.6 Limitation of activities due to disability; J40 Bronchitis, not specified as acute or chronic; Z79.899 Other long term (current) drug therapy
CPT/HCPCS: 36415; 71046; 80048-TC; 80053-TC; 80061-TC; 83735-TC; 84100-TC; 84443-TC; 85025-TC; 87081-TC; J1644; Z7610

== ENCOUNTER 2017-05-16 17:38 | Inpatient (IN) | payer MEDICARE, BC ==
[~2017-05-16] VITALS: Ht 170.2 cm; Wt 101.6 kg
[~2017-05-16 17:38] MED LIST changes: +ALBU2.5V13 NEB; +ALEN70TA3 PO; -ATOR20TA PO; +ATOR40TA PO; +BENZ-13 PO; +CLON0.1T PO; +CYAN10009 PO; +FENO145T PO; +FLUT1BLS IH; +GABA-534 PO; +GUAI10SY3 PO; +HEPA500013 SQ; -LEVO112T5 PO; +LEVO137T24 PO; +LORA10TA68 PO; +METH500T PO; -METO25TA6 PO; +METO50TA16 PO; +MONT10TA22 PO; -NIFE10CA PO; +OMEG1CAP PO; -OXYC5CAP18 PO; -RAMI5CAP30 PO; -SUMA100T PO; +VERA180T25 PO
--- NOTE | 2017-05-16 17:38 | NUR ---
LEGAL TRANSCRIPTIONIST NOTES PATIENT ADMITTED FROM GPS, PATIENT ALERT AND ORIENTED X3, WITH EPISODE OF ANXIOUSNESS AND FORGETFULNESS, PATIENT PLACED ON O2 AT 3LPM VIA NC WITH SPO2 OF 96%, BREATHING EVEN AND UNLABORED, COUGHING AT TIMES, NON-PRODUCTIVE, SKIN ASSESSMENT COMPLETED, PATIENT HAS REDNESS ON HER BILATERAL BUTTOCKS, BUT PATIENT REFUSED PHOTOS, PER PATIENT "IM EMBARRASSED," EXPLAINED RISKS/BENEFITS. BELONGINGS RECONCILED, RECEIVED ORDERS FROM DR. MIHAI WASHINGTON. PIV INSERTED ON LFA #22, SALINE LOCK. ALL NEEDS ATTENDED, WILL CONTINUE TO MONITOR.
[2017-05-16 18:58] VITALS: BP 119/60
[2017-05-16] MEDS ORDERED: CLONIDINE HCL 0.1 MG TABLET PO PRN (19:00)
--- NOTE | 2017-05-16 19:00 | NUR ---
RN NOTES PATIENT IS IN NO DISTRESS, BREATHING EVEN AND UNLABORED, STILL ON O2 AT 3LPM VIA NC, DENIES PAIN AT THIS TIME, VS STABLE, AFEBRILE. NEEDS ATTENDED AND MET, CALL LIGHT WITHIN REACH, ENDORSED TO LOMBARDI DEVELOPER FOR CARLOS.
[2017-05-16 19:26] LABS: BASOPHILS # (AUTO) 0.1 /CMM (0.0-0.2); BASOPHILS % (AUTO) 0.3 % (0.0-2.0); EOSINOPHILS % (AUTO) 0.1 % (0.0-6.0); HEMATOCRIT 31 % (33-45); HEMOGLOBIN 10.4 g/dL (11.5-14.8); LYMPHOCYTES # (AUTO) 0.9 /CMM (0.8-4.8); LYMPHOCYTES % (AUTO) 5.7 % (20.0-44.0); MEAN CORPUSCULAR HEMOGLOBIN 29 PG (26.0-33.0); MEAN CORPUSCULAR HGB CONC 34 g/dl (31.0-36.0); MEAN CORPUSCULAR VOLUME 86 fL (82-100); MONOCYTES # (AUTO) 1.3 /CMM (0.1-1.30); NEUTROPHILS # (AUTO) 14.1 /CMM (1.8-8.9); NEUTROPHILS % (AUTO) 85.9 % (43.0-81.0); PLATELET COUNT (AUTO) 276 /CMM (150-450); RDW COEFFICIENT OF VARIATION 16.3 (11.5-15.0); RED BLOOD CELL COUNT(AUTO) 3.58 MIL/uL (4.0-5.2); WHITE BLOOD COUNT (AUTO) 16.4 K/uL (4.3-11.0)
[2017-05-16 19:41] LABS: CALCIUM, SERUM 9.5 mg/dL (8.5-10.1); CARBON DIOXIDE 24 mmol/L (21-32); CHLORIDE 102 mmol/L (98-107); CREATININE 1.4 mg/dL (0.6-1.3); GLUCOSE 131 mg/dL (74-106); MAGNESIUM 2.2 mg/dL (1.8-2.4); PHOSPHORUS 2.8 mg/dL (2.5-4.9); POTASSIUM 4.5 mmol/L (3.5-5.1); SODIUM SERUM 137 mmol/L (136-145); UREA NITROGEN, BLOOD 20 mg/dL (7-18)
[2017-05-16 20:00] VITALS: BP 119/65
[2017-05-16] MEDS: ACETAMINOPHEN 325 MG TABLET PO PRN (22:02)
[2017-05-16] MEDS: METOPROLOL TARTRATE 50 MG TABLET PO SCH (22:02)
[2017-05-16] MEDS: METHOCARBAMOL (500MG) 500 MG TABLET PO PRN (22:03)
[2017-05-17] MEDS: ACETAMINOPHEN 325 MG TABLET PO PRN ×2 (05:04→16:59)
[2017-05-17] MEDS: METHOCARBAMOL (500MG) 500 MG TABLET PO PRN (05:32)
--- NOTE | 2017-05-17 06:40 | NUR ---
MS RN NOTES AWAKE & RESPONSIVE. NOT IN ANY DISTRESS. NO SOB NOTED. DENIES ANY PAIN OR DISCOMFORT AT THIS TIME. WITH IV-HL PATENT & INTACT. AM CARE DONE. MONITORED ACCORDINGLY. CALL LIGHT WITHIN REACH. BED IN LOWEST POSITION. SR UP X 2 FOR SAFETY. WILL ENDORSE TO NEXT SHIFT.
[2017-05-17 06:50] LABS: CALCIUM, SERUM 9.3 mg/dL (8.5-10.1); CARBON DIOXIDE 23 mmol/L (21-32); CHLORIDE 103 mmol/L (98-107); CREATININE 1.1 mg/dL (0.6-1.3); GLUCOSE 114 mg/dL (74-106); MAGNESIUM 2.3 mg/dL (1.8-2.4); PHOSPHORUS 2.4 mg/dL (2.5-4.9); POTASSIUM 4.1 mmol/L (3.5-5.1); SODIUM SERUM 135 mmol/L (136-145); UREA NITROGEN, BLOOD 17 mg/dL (7-18)
[2017-05-17 06:57] LABS: BASOPHILS % (AUTO) 0.1 % (0.0-2.0); EOSINOPHILS % (AUTO) 0.1 % (0.0-6.0); HEMATOCRIT 28 % (33-45); HEMOGLOBIN 9.4 g/dL (11.5-14.8); LYMPHOCYTES # (AUTO) 0.7 /CMM (0.8-4.8); MEAN CORPUSCULAR HEMOGLOBIN 29 PG (26.0-33.0); MEAN CORPUSCULAR HGB CONC 34 g/dl (31.0-36.0); MEAN CORPUSCULAR VOLUME 86 fL (82-100); MONOCYTES # (AUTO) 1.1 /CMM (0.1-1.30); MONOCYTES % (AUTO) 7.6 % (2.0-12.0); NEUTROPHILS # (AUTO) 12.3 /CMM (1.8-8.9); NEUTROPHILS % (AUTO) 87.2 % (43.0-81.0); PLATELET COUNT (AUTO) 250 /CMM (150-450); RDW COEFFICIENT OF VARIATION 16.6 (11.5-15.0); RED BLOOD CELL COUNT(AUTO) 3.21 MIL/uL (4.0-5.2); WHITE BLOOD COUNT (AUTO) 14.1 K/uL (4.3-11.0)
--- NOTE | 2017-05-17 07:32 | NUR ---
MS/RN OPENING NOTE PATIENT IN BED IN STABLE CONDITION. A/O X 3. NO SIGNS OF ACUTE DISTRESS. NO COMPLAIN OF PAIN OR DISCOMFORT. ALL NEEDS ATTENDED TO. CALL LIGHT WITHIN REACH. WILL CONTINUE TO MONITOR TO ENSURE SAFETY.
[2017-05-17 08:00] VITALS: BP 121/65
[2017-05-17] MEDS: CLOTRIMAZOLE/BETAMETASONE DIPROPIONATE 15 GM TUBE TP SCH ×2 (08:37→16:17)
[2017-05-17] MEDS: MONTELUKAST SODIUM (10MG) 10 MG TABLET PO SCH (08:38)
[2017-05-17] MEDS: GABAPENTIN 300 MG CAPSULE PO SCH (08:38)
[2017-05-17] MEDS: VERAPAMIL SR 180 MG TABLET.SA PO SCH (08:38)
[2017-05-17] MEDS: METOPROLOL TARTRATE 50 MG TABLET PO SCH (08:38)
[2017-05-17] MEDS: CYANOCOBALAMIN 500 MCG TABLET PO SCH (08:38)
[2017-05-17] MEDS: FENOFIBRATE NANOCRYS (145 MG) 145 MG TABLET PO SCH (08:38)
[2017-05-17] MEDS: LEVOTHYROXINE SODIUM 75 MCG TABLET PO SCH (08:39)
[2017-05-17] MEDS ORDERED: FLUTICASONE/VILANTEROL 1 EACH BLST.W.DEV IH SCH (09:00)
--- NOTE | 2017-05-17 10:32 | NUR ---
PUT THREE ORDERS IN WITH TANGELA FOR TRAINING PURPOSES ONLY
[2017-05-17] MEDS: BENZONATATE 100 MG CAPSULE PO PRN (13:26)
--- NOTE | 2017-05-17 14:52 | NUR ---
MS/RN SEEN BY DR MIHAI WASHINGTON PATIENT SEEN BY DR WASHINGTON WITH NEW ORDERS FOR ROUTINE BREATHING TREATMENT, SOLUMEDROL IV AND LASIX 40 MG IV.
[2017-05-17] MEDS ORDERED: IPRATROPIUM NEB FS 0.5 MG/2.5 ML AMPUL.NEB NEB PRN (15:00)
[2017-05-17] MEDS ORDERED: FUROSEMIDE 40 MG/4 ML VIAL IV ONE (15:00)
[2017-05-17] MEDS ORDERED: NEUTRA PHOS 1 POWD.PACKET PO ONE (15:00)
[2017-05-17] MEDS ORDERED: ALBUTEROL FS 2.5 MG/0.5 ML VIAL.NEB NEB PRN (15:00)
[2017-05-17 16:00] VITALS: BP 125/90
[2017-05-17] MEDS: ALBUTEROL FS 2.5 MG/0.5 ML VIAL.NEB NEB SCH ×3 (16:11→23:30)
[2017-05-17] MEDS: IPRATROPIUM NEB FS 0.5 MG/2.5 ML AMPUL.NEB NEB SCH ×3 (16:12→23:30)
[2017-05-17] MEDS: methylPREDNISolone SOD SUCC 125 MG/2ML VIAL IV SCH ×2 (16:17→20:36)
[2017-05-17] MEDS: LORAZEPAM 0.5 MG TABLET PO PRN (16:59)
--- NOTE | 2017-05-17 18:35 | NUR ---
MS/RN CLOSING NOTE PATIENT IN BED IN STABLE CONDITION. A/O X 3. NO SIGNS OF ACUTE DISTRESS. NO COMPLAIN OF PAIN OR DISCOMFORT. ALL NEEDS ATTENDED TO. CALL LIGHT WITHIN REACH. WILL ENDORSE TO NEXT SHIFT FOR CONTINUITY OF CARE.
--- NOTE | 2017-05-17 19:15 | NUR ---
MS RN NOTES RECEIVED PT IN BED, RESTING COMFORTABLY AT THIS TIME. AROUSES EASILY. A/O X 3. NO SIGNS OF ACUTE DISTRESS, NO DISTRESS NOTED. IV SITE ON LFA INTACT AND PATENT, NO S/S OF INFILTRATION NOTED. NO COMPLAIN OF PAIN OR DISCOMFORT AT THIS TIME. . ALL NEEDS ATTENDED AND MET. SAFETY PRECAUTIONS OBSERVED. CALL LIGHT WITHIN REACH. WILL CONTINUE TO MONITOR.
--- NOTE | 2017-05-17 19:56 | NUR ---
Patient lives at [facility], [address] [place] [phone]. She was transferred to medical unit from [facility] yesterday due to hypoxia. Current plan is to return to [facility] once discharge. Etta Valderrama, her patient advocate [phone] can provide transportation. Patient has pcp f/u appt on 05/21/[address] Serrato [address] [facility] [address], [place] [address] [phone] F/U appointment on June 18 2017 at 2pm with her psychiatrist Dr. Felix [address] [facility] [address] [place] [phone] Addendum: 05/17/17 at 1956 by CHRISTINA VELEZ RN Amended: Links added.
[2017-05-17 20:00] VITALS: BP 125/67
--- NOTE | 2017-05-17 20:39 | NUR ---
Patient lives at [facility], [address] [place] [phone]. She was transferred to medical unit from [facility] unit yesterday due to hypoxia. Current plan is to return to [facility] once discharge. Etta Valderrama, her patient advocate [phone] can provide transportation. Patient has pcp f/u appt on 05/21/[address] Serrato [address] [facility] [address], [place] [address] [phone] F/U appointment on June 18 2017 at 2pm with her psychiatrist Dr. Felix [address] [facility] [address] [place] [phone] [facility], / fax#[phone] Addendum: 05/17/17 at 2038 by CHRISTINA VELEZ RN Amended: Links added.
[2017-05-18] MEDS: ALBUTEROL FS 2.5 MG/0.5 ML VIAL.NEB NEB SCH ×6 (03:36→23:30)
[2017-05-18] MEDS: IPRATROPIUM NEB FS 0.5 MG/2.5 ML AMPUL.NEB NEB SCH ×6 (03:36→23:33)
[2017-05-18] MEDS: methylPREDNISolone SOD SUCC 125 MG/2ML VIAL IV SCH ×3 (05:40→22:19)
[2017-05-18 06:28] LABS: HEMATOCRIT 30 % (33-45); HEMOGLOBIN 10.1 g/dL (11.5-14.8); LYMPHOCYTES # (AUTO) 0.4 /CMM (0.8-4.8); LYMPHOCYTES % (AUTO) 3.3 % (20.0-44.0); MEAN CORPUSCULAR HEMOGLOBIN 29 PG (26.0-33.0); MEAN CORPUSCULAR HGB CONC 34 g/dl (31.0-36.0); MEAN CORPUSCULAR VOLUME 86 fL (82-100); MONOCYTES # (AUTO) 0.2 /CMM (0.1-1.30); MONOCYTES % (AUTO) 1.7 % (2.0-12.0); NEUTROPHILS # (AUTO) 11.2 /CMM (1.8-8.9); PLATELET COUNT (AUTO) 296 /CMM (150-450); RDW COEFFICIENT OF VARIATION 16.3 (11.5-15.0); RED BLOOD CELL COUNT(AUTO) 3.45 MIL/uL (4.0-5.2); WHITE BLOOD COUNT (AUTO) 11.8 K/uL (4.3-11.0)
[2017-05-18 06:47] LABS: CALCIUM, SERUM 9.2 mg/dL (8.5-10.1); CARBON DIOXIDE 22 mmol/L (21-32); CHLORIDE 99 mmol/L (98-107); CREATININE 1.4 mg/dL (0.6-1.3); GLUCOSE 215 mg/dL (74-106); MAGNESIUM 2.4 mg/dL (1.8-2.4); PHOSPHORUS 2.7 mg/dL (2.5-4.9); SODIUM SERUM 135 mmol/L (136-145); UREA NITROGEN, BLOOD 25 mg/dL (7-18)
--- NOTE | 2017-05-18 07:04 | NUR ---
MS RN NOTES PT IN BED, AWAKE,A/O X 3.WATCHING TV. NO SIGNS OF ACUTE DISTRESS, NO DISTRESS NOTED. IV SITE ON LFA INTACT AND PATENT, NO S/S OF INFILTRATION NOTED. NO COMPLAIN OF PAIN OR DISCOMFORT AT THIS TIME. . ALL NEEDS ATTENDED AND MET. SAFETY PRECAUTIONS OBSERVED. CALL LIGHT WITHIN REACH. WILL ENDORSE TO NEXT SHIFT FOR CARLOS.
[2017-05-18 08:00] VITALS: BP 139/76
--- NOTE | 2017-05-18 08:00 | NUR ---
RN NOTES RECEIVED PATIENT IN THE ROOM, A/O X3, GETTING BREATHING TREATMENT AT THIS TIME, PATIENT ANXIOUS, LEFT FOREARM IV ACCESS INTACT, CALL LIGHT WITHIN TO REACH, SAFETY PRECAUTION MAINTAINED ALL THE TIME.
[2017-05-18] MEDS: LEVOTHYROXINE SODIUM 75 MCG TABLET PO SCH (09:25)
[2017-05-18] MEDS: LORAZEPAM 0.5 MG TABLET PO PRN ×2 (09:25→18:02)
[2017-05-18] MEDS: GABAPENTIN 300 MG CAPSULE PO SCH ×2 (09:26→22:18)
[2017-05-18] MEDS: VERAPAMIL SR 180 MG TABLET.SA PO SCH (09:27)
[2017-05-18] MEDS: MONTELUKAST SODIUM (10MG) 10 MG TABLET PO SCH (09:27)
[2017-05-18] MEDS: LORATADINE 10 MG TABLET PO SCH (09:28)
[2017-05-18] MEDS: AMLODIPINE BESYLATE 10 MG TABLET PO SCH (09:28)
[2017-05-18] MEDS: CYANOCOBALAMIN 500 MCG TABLET PO SCH (09:29)
[2017-05-18] MEDS: FENOFIBRATE NANOCRYS (145 MG) 145 MG TABLET PO SCH (09:29)
[2017-05-18] MEDS: CLOTRIMAZOLE/BETAMETASONE DIPROPIONATE 15 GM TUBE TP SCH ×2 (09:30→16:35)
--- NOTE | 2017-05-18 09:30 | NUR ---
RN NOTES ADMINISTERED ATIVAN 0.5 MG PO PRN FOR ANXIETY, PER PATIENT REQUEST, V/S TAKEN BP 139/76, P-100, CONTINUED MONITORING.
--- NOTE | 2017-05-18 09:38 | NUR ---
RN NOTES SCHEDULED MEDICATION ADMINISTERED, NO ACUTE DISTRESS, NO RESPIRATORY DISTRESS, ENCOURAGED TO EXPRESS FEELINGS AND CONCERNS, NEEDS ATTENDED AND ANTICIPATED, CONTINUED MONITORING.
--- NOTE | 2017-05-18 12:49 | NUR ---
WOUND CARE CONSULT: PT EATING AT THIS TIME. PER NURSING STAFF PT HAS SACRAL REDNESS. ALL SKIN PROTECTION MEASURES IN PLACE AND DISCUSSED WITH NURSING STAFF. CURRENT RONEN SCORE IS 16. WILL SEE PRNJoseph BRUNO IN AGREEMENT WITH PLAN OF CARE.
[2017-05-18] MEDS: Z GUARD REMEDY 2 OZ OINT TP PRN (14:46)
[2017-05-18] MEDS: Z GUARD REMEDY 2 OZ OINT TP SCH (14:47)
[2017-05-18 16:00] VITALS: BP 131/76
[2017-05-18] MEDS: METHOCARBAMOL (500MG) 500 MG TABLET PO PRN (16:31)
--- NOTE | 2017-05-18 16:31 | NUR ---
RN NOTES ADMINISTERED ROBAXIN 500 MG PO FOR MUSCLE SPASM, ALSO PATIENT RECEIVING BREATHING TREATMENT AT THIS TIME, CALL LIGHT WITHIN TO REACH, SAFETY PRECAUTION MAINTAINED ALL THE TIME.
--- NOTE | 2017-05-18 18:02 | NUR ---
RN NOTES ADMINISTERED ATIVAN 0.5 MG PO PRN FOR ANXIETY, GET IRRITABLE EASILY, V/S TAKEN BP -152/69, P-114, NEEDS ATTENDED AND ANTICIPATED, CALL LIGHT WITHIN TO REACH, CONTINUED MONITORING.
--- NOTE | 2017-05-18 19:29 | NUR ---
RECEIVED PATIENT IN ROOM ALERT AWAKE X4 ANXIOUS COMPLAINING OF PAIN BUT NOTHING IS DUE YET, PATIENT IS ON 2 LITTER O2 VIA NASAL CANULA AFEBRILE WILL CONTINUES TO MONITOR THE PATIENT FOR SAFETY AND FALL.
[2017-05-18] MEDS: risperiDONE 1 MG TABLET PO SCH (22:18)
[2017-05-18] MEDS: MIRTAZAPINE 15 MG TABLET PO SCH (22:18)
[2017-05-19] MEDS: LORAZEPAM 0.5 MG TABLET PO PRN ×2 (03:47→14:43)
[2017-05-19] MEDS: IPRATROPIUM NEB FS 0.5 MG/2.5 ML AMPUL.NEB NEB SCH ×6 (03:47→23:00)
[2017-05-19] MEDS: ALBUTEROL FS 2.5 MG/0.5 ML VIAL.NEB NEB SCH ×6 (03:47→23:00)
[2017-05-19] MEDS: methylPREDNISolone SOD SUCC 125 MG/2ML VIAL IV SCH ×3 (05:09→21:18)
--- NOTE | 2017-05-19 05:54 | NUR ---
NO CHANGES FROM BASE LINE PATIENT IS ALERT X 3 BREATHING EVEN UNLABORED, ON 2 LITTER O2 VIA NASAL CANULA, PATIENT IS INCONTINENT SACRAL REDNESS REFUSED TO TURN VERY DEMANDING AND AND ANXIOUS WILL CONTINUES TO MONITOR THE PATIENT FOR SAFETY AND FALL.
--- NOTE | 2017-05-19 07:30 | NUR ---
metal container maker johny baer.
[2017-05-19 08:00] VITALS: BP 130/77
[2017-05-19] MEDS: CYANOCOBALAMIN 500 MCG TABLET PO SCH (09:01)
[2017-05-19] MEDS: GABAPENTIN 300 MG CAPSULE PO SCH ×2 (09:01→21:18)
[2017-05-19] MEDS: AMLODIPINE BESYLATE 10 MG TABLET PO SCH (09:02)
[2017-05-19] MEDS: VERAPAMIL SR 180 MG TABLET.SA PO SCH (09:02)
[2017-05-19] MEDS: FENOFIBRATE NANOCRYS (145 MG) 145 MG TABLET PO SCH (09:02)
[2017-05-19] MEDS: risperiDONE 0.25 MG TABLET PO SCH (09:03)
[2017-05-19] MEDS: MONTELUKAST SODIUM (10MG) 10 MG TABLET PO SCH (09:03)
[2017-05-19] MEDS: LEVOTHYROXINE SODIUM 75 MCG TABLET PO SCH (09:03)
[2017-05-19] MEDS: CLOTRIMAZOLE/BETAMETASONE DIPROPIONATE 15 GM TUBE TP SCH ×2 (09:04→17:39)
[2017-05-19] MEDS: Z GUARD REMEDY 2 OZ OINT TP SCH (09:04)
--- NOTE | 2017-05-19 10:30 | NUR ---
dr. yusuf in to see pt.
[2017-05-19] MEDS: BENZONATATE 100 MG CAPSULE PO PRN ×2 (13:13→23:15)
--- NOTE | 2017-05-19 14:00 | NUR ---
given tessalon perle for cough.
--- NOTE | 2017-05-19 14:43 | NUR ---
given ativan for anxiety.
[2017-05-19 16:00] VITALS: BP 136/74
[2017-05-19] MEDS: ACETAMINOPHEN 325 MG TABLET PO PRN (18:53)
--- NOTE | 2017-05-19 19:01 | NUR ---
just medicated with tylenol 650 mg po for headache.
--- NOTE | 2017-05-19 19:20 | NUR ---
RN OPENING NOTES RECEIVED PATIENT, IN BED, AWAKE, ALERT AND ORIENTED, VERBALLY RESPONSIVE, NOTED WITH NO SOB, BREATHING EVEN AND UNLABORED, NO C/O PAIN AT THIS TIME, IN NO ACUTE DISTRESS. ALL PATIENT'S NEEDS ATTENDED TO AT THIS TIME. CALL LIGHT PLACED WITHIN EASY REACH. WILL CONTINUE TO MONITOR PATIENT.
[2017-05-19 20:00] VITALS: BP 149/76
[2017-05-19] MEDS: MIRTAZAPINE 15 MG TABLET PO SCH (21:17)
[2017-05-19] MEDS: risperiDONE 1 MG TABLET PO SCH (21:19)
--- NOTE | 2017-05-19 23:15 | NUR ---
RN NOTE PATIENT NOTED TO BE COUGHING, TESSALON PERLES GIVEN ORDERED, WILL CONTINUE TO MONITOR.
[2017-05-20] MEDS: LORAZEPAM 0.5 MG TABLET PO PRN (00:33)
--- NOTE | 2017-05-20 00:33 | NUR ---
RN NOTE RECEIVED REPORT FROM PATIENT THAT SHE IS FEELING ANXIOUS AND NEEDS SOMETHING TO HELP HER SLEEP, ATIVAN GIVEN ORDERED. WILL CONTINUE TO MONITOR PATIENT.
[2017-05-20] MEDS: IPRATROPIUM NEB FS 0.5 MG/2.5 ML AMPUL.NEB NEB SCH ×6 (03:26→21:58)
[2017-05-20] MEDS: ALBUTEROL FS 2.5 MG/0.5 ML VIAL.NEB NEB SCH ×6 (03:27→21:58)
--- NOTE | 2017-05-20 04:33 | NUR ---
RN NOTE PATIENT CONTINUES TO COUGH INTERMITTENTLY, PER PATIENT THE TESSALON PERLES HELPED BUT SHE STILL CONTINUES TO HAVE NON PRODUCTIVE COUGH, NO WHEEZING NOTED, NO CRACKLES UPON AUSCULTATION. INFORMED DR. PATEL OF PATIENT'S CONDITION, MD WITH NEW ORDER FOR PILARSIN AC. ALL ORDERS NOTED AND CARRIED OUT. PATIENT AWARE AND AGREES.
[2017-05-20] MEDS: GUAIFENESIN/CODEINE 10 ML UDC PO PRN ×4 (04:42→16:54)
[2017-05-20] MEDS: methylPREDNISolone SOD SUCC 125 MG/2ML VIAL IV SCH ×3 (05:43→16:54)
[2017-05-20] MEDS: Z GUARD REMEDY 2 OZ OINT TP PRN (05:47)
[2017-05-20] MEDS: LEVOTHYROXINE SODIUM 75 MCG TABLET PO SCH (06:46)
--- NOTE | 2017-05-20 07:02 | NUR ---
RN CLOSING NOTE PATIENT IN BED, COMFORTABLE, ALERT AND ORIENTED X 3, VERBALLY RESPONSIVE, NO SOB NOTED, BREATHING EVEN AND UNLABORED AND IN NO ACUTE DISTRESS. NOT COUGHING AT THIS TIME, CONTINUES TO RECEIVE O2 @ 2LPM VIA NC. PATIENT'S BED PLACED IN LOW POSITION, LOCKED IN PLACE. CALL LIGHT PLACED WITHIN EASY REACH. WILL ENDORSE TO AM NURSE FOR CONTINUITY OF CARE.
--- NOTE | 2017-05-20 07:10 | NUR ---
RN NOTES PT IS AWAKE AND RESTING COMFORTABLY IN BED. PT ON 2L O2, RESPIRATIONS ARE EVEN AND UNLABORED. IV ON LFA INTACT AND SL. PT DENIES ANY PAIN AND SHOWS NO SIGNS OF DISTRESS. SAFETY MEASURES ARE IN PLACE, CALL LIGHT IS IN REACH. WILL CONTINUE TO MONITOR.
[2017-05-20 08:00] VITALS: BP_SYST 115; BP_SYST 140; BP_DIAS 64; BP_DIAS 88
[2017-05-20] MEDS: MONTELUKAST SODIUM (10MG) 10 MG TABLET PO SCH (08:20)
[2017-05-20] MEDS: GABAPENTIN 300 MG CAPSULE PO SCH ×2 (08:20→21:25)
[2017-05-20] MEDS: CYANOCOBALAMIN 500 MCG TABLET PO SCH (08:20)
[2017-05-20] MEDS: risperiDONE 0.25 MG TABLET PO SCH (08:20)
[2017-05-20] MEDS: LORATADINE 10 MG TABLET PO SCH (08:20)
[2017-05-20] MEDS: VERAPAMIL SR 180 MG TABLET.SA PO SCH (08:20)
[2017-05-20] MEDS: Z GUARD REMEDY 2 OZ OINT TP SCH (08:21)
[2017-05-20] MEDS: AMLODIPINE BESYLATE 10 MG TABLET PO SCH (08:21)
[2017-05-20] MEDS: FENOFIBRATE NANOCRYS (145 MG) 145 MG TABLET PO SCH (08:21)
[2017-05-20] MEDS: CLOTRIMAZOLE/BETAMETASONE DIPROPIONATE 15 GM TUBE TP SCH ×2 (08:21→16:54)
[2017-05-20] MEDS: ACETAMINOPHEN 325 MG TABLET PO PRN (15:08)
[2017-05-20 16:00] VITALS: BP 131/61
--- NOTE | 2017-05-20 18:24 | NUR ---
RN NOTES PT IS SITTING UP IN BED, RESTING COMFORTABLY, NO SIGNS OF DISTRESS NOTED. PT ON 2L O2, RESPIRATIONS ARE EVEN AND UNLABORED. IV ON LFA INTACT AND SL. ALL MEDS WERE GIVEN ORDERED AND PT NEEDS MET. SAFETY MEASURES ARE IN PLACE, CALL LIGHT IS IN REACH. WILL ENDORSE TO PRODUCTION MACHINE COMPUTER OPERATOR RN FOR CONTINUITY OF CARE.
--- NOTE | 2017-05-20 19:15 | NUR ---
MS/RN OPENING NOTES PT RECEIVED AWAKE, RESTING COMFORTABLY IN BED. A/OX3. ON 2L O2 VIA NC, BREATHING EVEN AND UNLABORED. DENIES SOB OR PAIN AT THIS TIME. NON PRODUCTIVE COUGH NOTED. IV TO LFA PATENT AND INTACT. BED IN LOW/LOCKED POSITION WITH CALL LIGHT IN REACH. SIDE RAILS UPX2. WILL CONTINUE TO MONITOR
[2017-05-20 20:00] VITALS: BP_SYST 124; BP_SYST 130; BP_DIAS 63
[2017-05-20] MEDS: risperiDONE 1 MG TABLET PO SCH (21:25)
[2017-05-20] MEDS: MIRTAZAPINE 15 MG TABLET PO SCH (21:25)
[2017-05-21] MEDS: IPRATROPIUM NEB FS 0.5 MG/2.5 ML AMPUL.NEB NEB SCH ×6 (03:20→23:30)
[2017-05-21] MEDS: ALBUTEROL FS 2.5 MG/0.5 ML VIAL.NEB NEB SCH ×6 (03:20→23:30)
--- NOTE | 2017-05-21 07:30 | NUR ---
MS/RN CLOSING NOTES PT AWAKE, RECEIVING BREATHING TX. NON PRODUCTIVE COUGH NOTED OCCASIONALLY DURING SHIFT. A/OX3. ON 2L O2 VIA NC, BREATHING EVEN AND UNLABORED. IN NO DISTRESS. DENIES PAIN. KEPT CLEAN AND DRY. IV TO LFA PATENT AND INTACT. EMOTIONAL SUPPORT PROVIDED PRN. KEPT COMFORTABLE AND MET ALL NEEDS. NO SIGNIFICANT CHANGES OVERNIGHT. BED REMAINS IN LOW/LOCKED POSITION WITH CALL LIGHT IN REACH. ENDORSED TO DAY SHIFT RN CARLOS.
--- NOTE | 2017-05-21 07:59 | NUR ---
MS RN NOTES PATIENT RECEIVED AWAKE, ALERT, VERBALLY RESPONSIVE AND RESPONDS TO VERBAL AND TACTILE STIMULI. BREATHING EVEN AND UNLABORED. O2 USE AT 2L/MIN VIA NC. NO SOB OR CONGESTION NOTED. DENIES ANY PAIN OR DISCOMFORT AT THIS TIME. WILL CONTINUE TO MONITOR
[2017-05-21 08:00] VITALS: BP 150/77
[2017-05-21] MEDS: LEVOTHYROXINE SODIUM 75 MCG TABLET PO SCH (08:33)
[2017-05-21] MEDS: AMLODIPINE BESYLATE 10 MG TABLET PO SCH (08:34)
[2017-05-21] MEDS: GABAPENTIN 300 MG CAPSULE PO SCH ×2 (08:34→21:09)
[2017-05-21] MEDS: MONTELUKAST SODIUM (10MG) 10 MG TABLET PO SCH (08:35)
[2017-05-21] MEDS: CYANOCOBALAMIN 500 MCG TABLET PO SCH (08:35)
[2017-05-21] MEDS: risperiDONE 0.25 MG TABLET PO SCH (08:35)
[2017-05-21] MEDS: methylPREDNISolone SOD SUCC 125 MG/2ML VIAL IV SCH (08:35)
[2017-05-21] MEDS: FENOFIBRATE NANOCRYS (145 MG) 145 MG TABLET PO SCH (08:35)
[2017-05-21] MEDS: VERAPAMIL SR 180 MG TABLET.SA PO SCH (08:35)
[2017-05-21] MEDS: CLOTRIMAZOLE/BETAMETASONE DIPROPIONATE 15 GM TUBE TP SCH ×2 (08:40→17:08)
[2017-05-21 10:00] VITALS: BP 150/77
[2017-05-21] MEDS: ACETAMINOPHEN 325 MG TABLET PO PRN (13:25)
[2017-05-21] MEDS: Z GUARD REMEDY 2 OZ OINT TP SCH (15:06)
[2017-05-21 16:00] VITALS: BP 114/73
[2017-05-21] MEDS: predniSONE 20 MG TABLET PO SCH (17:08)
--- NOTE | 2017-05-21 19:00 | NUR ---
MS RN NOTES PATIENT AWAKE, ALERT, VERBALLY RESPONSIVE AND RESPONDS TO VERBAL AND TACTILE STIMULI. BREATHING EVEN AND UNLABORED.O2 IN USE AT 2L/MIN VIA NC. NO SOB OR ACUTE DSITRESS NOTED. PATIENT DENIES ANY PAIN OR DISCOMFORT. PATIENT AFEBRILE, SKIN DRY AND WARM TO TOUCH. NO CHANGES IN LOC NOTED AT THIS TIME. EMOTIONAL SUPPORT AND CALMING STRATEGIES PROVIDED PRN. WILL CONTINUE TO MONITOR. PATIENT KEPT CLEAN, DRY AND COMFORTABLE. ALL DUE MEDICATIONS GIVEN AND TOLERATED WELL. PROVIDED WITH CALM, SAFE, HAZARD-FREE ENVIRONMENT. PERICARE PROVIDED, PATIENT KEPT CLEAN, DRY AND COMFORTABLE. CALL LIGHT PLACED WITHIN EASY REACH
--- NOTE | 2017-05-21 19:20 | NUR ---
MS/RN OPENING NOTES PT RECEIVED RESTING COMFORTABLY IN BED. ON 2L O2 VIA NC, BREATHING EVEN AND UNLABORED. NON PRODUCTIVE COUGH PRESENT. DENIES SOB OR PAIN AT THIS TIME. IV TO LFA PATENT AND INTACT. IN NO APPARENT DISTRESS. BED IN LOW/LOCKED POSITION WITH CALL LIGHT IN REACH. SIDE RAILS UPX2. WILL CONTINUE TO MONITOR
[2017-05-21 20:00] VITALS: BP 160/71
[2017-05-21] MEDS: risperiDONE 1 MG TABLET PO SCH (21:08)
[2017-05-21] MEDS: MIRTAZAPINE 15 MG TABLET PO SCH (21:09)
[2017-05-21 21:30] VITALS: BP 153/89
[2017-05-22] MEDS: ALBUTEROL FS 2.5 MG/0.5 ML VIAL.NEB NEB SCH ×4 (03:51→14:38)
[2017-05-22] MEDS: IPRATROPIUM NEB FS 0.5 MG/2.5 ML AMPUL.NEB NEB SCH ×4 (03:51→14:38)
--- NOTE | 2017-05-22 07:34 | NUR ---
MS/RN CLOSING NOTES PT AWAKE, RESTING COMFORTABLY IN BED. A/OX3. ON 2L O2 VIA NC, BREATHING EVEN AND UNLABORED. NON PRODUCTIVE COUGH PRESENT INTERMITTENTLY DURING SHIFT. NO COMPLAINTS OF SOB OR PAIN AT THIS TIME. EMOTIONAL SUPPORT AND REASSURANCE PROVIDED PRN DURING TIMES OF ANXIETY. EASILY REDIRECTED. IV TO LFA PATENT AND INTACT. TURNED/REPOSITIONED Q2H, HEELS OFFLOADED. WOUND CARE PROVIDED ORDERED. KEPT CLEAN AND DRY. ALL NEEDS MET. KEPT COMFORTABLE. BED IN LOW/LOCKED POSITION WITH CALL LIGHT IN REACH. SIDE RAILS UPX2. ENDORSED TO DAY SHIFT RN CARLOS.
[2017-05-22 08:00] VITALS: BP 161/93
[2017-05-22] MEDS: AMLODIPINE BESYLATE 10 MG TABLET PO SCH (08:06)
[2017-05-22] MEDS: LORATADINE 10 MG TABLET PO SCH (08:06)
[2017-05-22] MEDS: BENZONATATE 100 MG CAPSULE PO PRN (08:07)
[2017-05-22] MEDS: GABAPENTIN 300 MG CAPSULE PO SCH (08:08)
[2017-05-22] MEDS: LEVOTHYROXINE SODIUM 75 MCG TABLET PO SCH (08:08)
[2017-05-22] MEDS: FENOFIBRATE NANOCRYS (145 MG) 145 MG TABLET PO SCH (08:09)
[2017-05-22] MEDS: risperiDONE 0.25 MG TABLET PO SCH (08:09)
[2017-05-22] MEDS: CYANOCOBALAMIN 500 MCG TABLET PO SCH (08:09)
[2017-05-22] MEDS: predniSONE 20 MG TABLET PO SCH (08:09)
[2017-05-22] MEDS: MONTELUKAST SODIUM (10MG) 10 MG TABLET PO SCH (08:09)
[2017-05-22] MEDS: METHOCARBAMOL (500MG) 500 MG TABLET PO PRN (08:09)
[2017-05-22] MEDS: VERAPAMIL SR 180 MG TABLET.SA PO SCH (08:09)
[2017-05-22] MEDS: CLOTRIMAZOLE/BETAMETASONE DIPROPIONATE 15 GM TUBE TP SCH ×2 (08:17→17:08)
[2017-05-22] MEDS: Z GUARD REMEDY 2 OZ OINT TP SCH (08:18)
--- NOTE | 2017-05-22 13:20 | NUR ---
M/S RN - Notes Patient was attempted to wean off oxygen but unable, SpO2 on room air at rest was 89-91% but with activity it went down to 86-88%, currently placed back on 2 lpm via nasal cannula. Referred to case management to arrange for home oxygen and supplies.
--- NOTE | 2017-05-22 13:35 | NUR ---
M/S RN - Notes (Oxygen) Rechecked pt's SpO2 on room air at rest noted it dropped to 86%-87%, notified case management to arrange home oxygen prior to discharge for safety.
[2017-05-22 16:00] VITALS: BP 139/76
[2017-05-22] MEDS: ACETAMINOPHEN 325 MG TABLET PO PRN (17:07)
--- NOTE | 2017-05-22 19:14 | NUR ---
M/S RN - Discharge Pt discharged to [facility], [address] [place] [phone]. Patient in stable condition. Reviewed discharge instructions with Etta Valderrama, her patient advocate [phone] and she verbalized full understanding of all teachings including f/u appt on 06/18/17 at 2pm with her psychiatrist Dr. Felix. [facility] for PT and nursing needs. Patient refused discharge photo to be taken. All belongings with the pt and she denies any missing items. VSS, denies pain, no c/o SOB. Heplock removed on the LFA with catheter tip intact, no redness and no swelling noted at the site. Discharge papers signed and copy was given per protocol. Accompanied by facility caregiver and transported by private car.
--- NOTE | 2017-05-22 19:30 | NUR ---
MS RN OPENING NOTES: RECEIVED PT SITTING UP IN BED WITH CAREGIVER AT BEDSIDE. PT A/OX3. PT ANTICIPATING TO GO HOME. CALL LIGHT WITHIN PT'S REACH. BED KEPT IN LOW, LOCKED POSITION, AND SIDE RAILS X 2UP. WILL CONTINUE TO MONITOR PT.
--- NOTE | 2017-05-22 19:49 | NUR ---
MS RN NOTES: PT ESCORTED DOWNSTAIRS WITH OCEAN EXPORT COORDINATOR, AM NURSE, AND CAREGIVER FOR DISCHARGE. PT LEFT IN STABLE CONDITION.
== END 2017-05-22 19:45 | DRG 291 ==
LOC: MEDSG2 17:38 → MED 05-19 06:37
PROVIDERS: ADMIT Internal Medicine Nephrology; ATTEND Internal Medicine Nephrology
DX: I13.0 Hypertensive heart and chronic kidney disease with heart failure and stage 1 through stage 4 chronic kidney disease, or unspecified chronic kidney disease (principal); J96.01 Acute respiratory failure with hypoxia; I50.33 Acute on chronic diastolic (congestive) heart failure; J44.1 Chronic obstructive pulmonary disease with (acute) exacerbation; G62.9 Polyneuropathy, unspecified; K21.9 Gastro-esophageal reflux disease without esophagitis; N18.9 Chronic kidney disease, unspecified; E03.9 Hypothyroidism, unspecified; E78.5 Hyperlipidemia, unspecified; F32.9 Major depressive disorder, single episode, unspecified; F41.9 Anxiety disorder, unspecified; Z87.891 Personal history of nicotine dependence; M79.7 Fibromyalgia; M81.0 Age-related osteoporosis without current pathological fracture; M19.90 Unspecified osteoarthritis, unspecified site; G43.909 Migraine, unspecified, not intractable, without status migrainosus; L98.8 Other specified disorders of the skin and subcutaneous tissue; E66.9 Obesity, unspecified; Z68.35 Body mass index [BMI] 35.0-35.9, adult
CPT/HCPCS: 36415; 70220-TC; 71045-TC; 80048-TC; 83735-TC; 84100-TC; 85025-TC; 87081-TC; 94799-TC; J1940; J2930; J7030